=== PATIENT | male | born 1980 | race Caucasian/White ===

== ENCOUNTER 2019-01-21 12:35 | Emergency (ER) | payer MEDICAID ==
[~2019-01-21] VITALS: Ht 170.2 cm; Wt 109.0 kg
[2019-01-21] MEDS ORDERED: KETOROLAC 60MG/2ML VIAL IM ONE (15:00)
[2019-01-21 15:03] VITALS: BP 147/86
== END 2019-01-21 15:20 | disposition home or self-care (01) ==
LOC: ER 12:35
DX: K02.9 Dental caries, unspecified (principal); R68.84 Jaw pain; R51 Headache; F17.210 Nicotine dependence, cigarettes, uncomplicated
CPT/HCPCS: 96372; 99283; J1885